=== PATIENT | female | born 1965 ===

== ENCOUNTER 2016-06-05 09:37 | Emergency (ER) | payer MEDICAID ==
[2016-06-05 09:38] VITALS: BMI 23.9
--- NOTE | 2016-06-05 10:41 | ED PDOC ---
HPI: General Adult Time Seen by Provider: 06/05/16 10:38 Chief Complaint (Nursing): Abdominal Pain Chief Complaint (Provider): abdominal pain History Per: Patient History/Exam Limitations: no limitations Additional Complaint(s): 51yo female w/ Hx Lupus comes to the ED complaining of abdominal pain described as burning that radiates up to the chest. Reports yellow vomit for 4 days. She is not able to tolerate any foods. States she is taking Prilosec, amoxicillin and clarithromycin which she stopped yesterday due to the pain. Last bowel movement was yesterday. Patient attempted zofran and carafate with mild temporary relief. PMD: [facility] Past Medical History Reviewed: Historical Data, Nursing Documentation, Vital Signs - Medical History PMH: Anemia, Anxiety, Arthritis, Asthma, Back Problems (herniated disk), Bronchitis, COPD, Depression, Fibromyalgia, Gastritis, GERD, Hiatal Hernia (per old chart but pt denies), HTN, Hypercholesterolemia, Hyperlipidemia, Hyperthyroidism, Hypothyroidism, Osteoporosis, Pneumonia, Rheumatoid Arthritis, Chronic Pain Denies: Alzheimer's Disease, Atrial Fibrillation, Cardia Arrhythmia, CHF, Dementia, HIV, Kidney Stones, Migraine, Mitral Valve Prolapse, Peripheral Edema , Chronic Kidney Disease, Seizures, TIA - Surgical History Surgical History: Appendectomy, Denies: Endoscopy, Pacemaker - Family History Family History: States: Unknown Family Hx, Hypertension - Immunization History Hx Tetanus Toxoid Vaccination: No Hx Influenza Vaccination: No Hx Pneumococcal Vaccination: No - Home Medications Home Medications: Ambulatory Orders Medication Instructions Recorded Omeprazole [Prilosec] 40 mg PO DAILY 08/02/15 Gabapentin [Neurontin] 1 cap PO TID #90 cap 04/27/16 Hydroxychloroquine Sulfate 200 mg PO BID #60 tablet 04/27/16 [Plaquenil] Levothyroxine [Synthroid] 50 mcg PO DAILY #30 tab 04/27/16 Sucralfate [Carafate Oral Susp] 1 gm PO ACBHS 10 Days 04/27/16 predniSONE [predniSONE Tab] 10 mg PO DAILY #30 tab 04/27/16 ALPRAZolam [Xanax] 1 mg PO TID PRN #9 tab 05/23/16 Amoxicillin [Amoxil 500 mg Cap] 1,000 mg PO BID #42 cap 05/23/16 Clarithromycin [Biaxin Filmtab] 500 mg PO BID #42 tab 05/23/16 Omeprazole 40 mg PO DAILY #30 capsule. 05/23/16 DiphenhydrAMINE [Benadryl] 1 tab PO HS PRN #3 cap 06/05/16 Famotidine [Pepcid] 1 tab PO BID PRN #10 tab 06/05/16 Ondansetron ODT [Zofran ODT] 4 mg PO Q8 PRN #10 odt 06/05/16 Sucralfate [Carafate] 1 gm PO QID #280 ml 06/05/16 - Allergies Allergies/Adverse Reactions: Allergies Allergy/AdvReac Type Severity Reaction Status Date / Time tramadol Allergy RASH Verified 03/07/16 11:16 hydromorphone HCl AdvReac ITCHING Verified 05/22/16 19:39 [From Dilaudid] Review of Systems ROS Statement: Except As Marked, All Systems Reviewed And Found Negative Gastrointestinal: Positive for: Vomiting, Abdominal Pain Physical Exam - Reviewed Nursing Documentation Reviewed: Yes Vital Signs Reviewed: Yes - Physical Exam Gastrointestinal/Abdominal: Positive for: Bowel Sounds (active), Tenderness ( mild epigastric) - Laboratory Results Result Diagrams: 06/05/16 11:31 06/05/16 12:51 - Progress ED Course And Treament: Pepcid 20 mg iv x 1 dose Zofran 4 mg iv x 1 dose Dilaudid 1 mg iv x 1 dose Phenergan 25 mg iv x 1 dose NS 1 liter obstructive series: wnl Persistent vomiting. Zofran 4mgi vx1 dos; morphine 4 mg i vx [address] abd/pelvis IMPRESSION: No acute findings related to/accounting for the clinical presentation. Additional benign and/or incidental findings described above. Limitations of the current examination: Pelvic loops of small bowel, colon are obscured by streak artifact from bilateral CHONG ease. Nondiagnostic assessment of the urinary bladder as well. On re-evaluateion 17:45pm Patient states she feels improved and would like to be discharged home. Medical Decision Making Medical Decision Makin: old charts reviewed. Patient was recently discharged with Dx h. pylori on Prisolec, Amoxicillin and Clarithromycin EKG, CXR, XR Obstructive Series, Labs, Pepcid, Zofran, IV fluids ordered. Disposition - Clinical Impression Clinical Impression: Gastritis - Patient ED Disposition Is Patient to be Admitted: No - Disposition Disposition: Routine/Home Disposition Time: 17:49 Condition: FAIR Prescriptions: DiphenhydrAMINE [Benadryl] 1 tab PO HS PRN #3 cap PRN Reason: Sleep Sucralfate [Carafate] 1 gm PO QID #280 ml Famotidine [Pepcid] 1 tab PO BID PRN #10 tab PRN Reason: Pain, Moderate (4-7) Ondansetron ODT [Zofran ODT] 4 mg PO Q8 PRN #10 odt PRN Reason: Nausea/Vomiting Instructions: Gastritis (ED) Additional Comments - Additional Comments Additional Comments: Documented by Bari Jj acting as a scribe for Aliyah Kolb PA-C. All medical record entries made by the Scribe were at my direction and personally dictated by me. I have reviewed the chart and agree that the record accurately reflects my personal performance of the history, physical exam, medical decision making, and the department course for this patient. I have also personally directed, reviewed, and agree with the discharge instructions and disposition.
[2016-06-05] MEDS ORDERED: Sodium Chloride 0.9% 1,000 ML IV STA (10:53)
[2016-06-05 11:33] LABS: RBC URINE 1 /hpf (0-3); URINE BACTERIA FEW (<OCC); URINE BILIRUBIN NEGATIVE (NEGATIVE); URINE BLOOD NEGATIVE (NEGATIVE); URINE COLOR YELLOW (YELLOW); URINE GLUCOSE (UA) NEG (Normal); URINE KETONE TRACE mg/dL (NEGATIVE); URINE LEUKOCYTE ESTERASE NEG Leu/uL (Negative); URINE PROTEIN 100 mg/dL (NEGATIVE); URINE UROBILINOGEN 0.2-1.0 mg/dL (0.2-1.0); WBC URINE 1 /hpf (0-5)
[2016-06-05 11:35] LABS: BASO # 0.1 K/uL (0.0-0.2); BASO % 0.7 % (0.0-2.0); EOS # 0.2 K/uL (0.0-0.7); EOS % 2.3 % (0.0-4.0); HEMATOCRIT 41.6 % (34.0-47.0); LYMPH # 1.9 K/uL (1.0-4.3); LYMPH % 19.6 % (20.0-40.0); MEAN CORPUSCULAR HEMOGLOBIN 27.5 pg (27.0-31.0); MEAN CORPUSCULAR HGB CONC 33.3 g/dL (33.0-37.0); MEAN PLATELET VOLUME 7.9 fl (7.2-11.7); MONO # 0.6 K/uL (0.0-0.8); MONO % 6.3 % (0.0-10.0); NEUT # 6.9 K/uL (1.8-7.0); NEUT % 71.1 % (50.0-75.0); NRBC % 0.1 % (0.0-0.0); RED CELL DISTRIBUTION WIDTH 16.1 % (11.5-14.5); WHITE BLOOD COUNT 9.6 K/uL (4.8-10.8)
[2016-06-05 11:36] LABS: MEAN CELL VOLUME 82.5 fl (81.0-99.0)
[2016-06-05 13:10] LABS: ALB/GLOB RATIO 1.1 (1.0-2.1); ALKALINE PHOSPHATASE 128 U/L (38-126); ALT/SGPT 32 U/L (9-52); AST/SGOT 24 U/L (14-36); BILIRUBIN,TOTAL 0.7 mg/dl (0.2-1.3); BLOOD UREA NITROGEN 9 mg/dl (7-17); CALCIUM 8.8 mg/dL (8.4-10.2); CARBON DIOXIDE 23 mmol/L (22-30); CHLORIDE 105 mmol/L (98-107); GFR AFRICAN-AMERICAN > 60; GLUCOSE,RANDOM 89 mg/dL (65-105); LIPASE 60 U/L (23-300); POTASSIUM 4.2 MMOL/L (3.6-5.0); SODIUM 142 mmol/l (132-148); TOTAL PROTEIN 7.2 G/DL (6.3-8.2)
[2016-06-05] MEDS ORDERED: Promethazine 25 MG in Sodium Chloride 0.9% 50 ML IVPB ONE (14:03)
[2016-06-05] MEDS ORDERED: Iohexol 240 (50 ml) PO ONE (14:04)
[2016-06-05] MEDS ORDERED: Iohexol 240 (50 ml) ONE (14:14)
--- NOTE | 2016-06-05 15:18 | RAD ---
PROCEDURE: Radiographs of the chest and abdomen (obstructive series) HISTORY: VOMITING COMPARISON: No prior. TECHNIQUE: AP radiograph of the chest, with upright and supine radiographs of the abdomen. FINDINGS: CHEST: Lungs: Clear. Cardiovascular: Normal size heart. No pulmonary vascular congestion. Pleura: No pleural fluid. No pneumothorax. Other findings: Sclerotic focus posterior right 6th rib. Etiology, significance unknown. Findings confirmed on CT thorax 10 [address]. ABDOMEN AND PELVIS: Bowel: Unremarkable bowel gas pattern. No evidence of mechanical obstruction. Free air: None. Bones: Unremarkable. Other findings: None. IMPRESSION: No acute findings related to/accounting for the clinical presentation. Sclerotic focus posterior aspect right 6th rib.
[2016-06-05] MEDS ORDERED: Sodium Chloride 0.9% 50 ML IV ONE (16:30)
[2016-06-05] MEDS ORDERED: Iohexol 300 100 ML IJ ONE (16:30)
--- NOTE | 2016-06-05 17:35 | CT ---
PROCEDURE: CT Abdomen and Pelvis with contrast HISTORY: abdominal pain/vomiting r/o sbo COMPARISON: None. TECHNIQUE: Contrast dose: 80 cc Omnipaque 300. Radiation dose: Total exam DLP = 558.58 mGy-cm. FINDINGS: LOWER THORAX: Incompletely visualized markedly dilated/ patulous esophagus. The findings were identified on a prior CT scan of the thorax and are approximately stable. CT thorax performed 05/22/2016. LIVER: Hepatic steatosis. No focal masses. No intrahepatic bile duct dilatation or perihepatic ascites. GALLBLADDER AND BILE DUCTS: Unremarkable. PANCREAS: Unremarkable. No gross lesion or ductal dilatation. SPLEEN: Unremarkable. ADRENALS: Unremarkable. No mass. KIDNEYS AND URETERS: Unremarkable. No hydronephrosis. No solid mass. VASCULATURE: Unremarkable. No aortic aneurysm. BOWEL: Unremarkable. No obstruction. No gross mural thickening. Diverticulosis without an acute inflammatory component or other associated pathologic process. Constipation without fecal impaction or obstruction. APPENDIX: No abnormalities to suggest acute appendicitis. No right lower quadrant inflammatory processes identified. PERITONEUM: Unremarkable. No free fluid. No free air. LYMPH NODES: Unremarkable. No enlarged lymph nodes. BLADDER: Nondiagnostic assessment of the urinary bladder related to streak artifact from bilateral CHONG. REPRODUCTIVE: Nondiagnostic assessment based on streak artifact from bilateral CHONG. BONES: No acute fracture. OTHER FINDINGS: None. IMPRESSION: No acute findings related to/accounting for the clinical presentation. Additional benign and/or incidental findings described above. Limitations of the current examination: Pelvic loops of small bowel, colon are obscured by streak artifact from bilateral CHONG ease. Nondiagnostic assessment of the urinary bladder as well.
--- NOTE | 2016-06-06 11:47 | CARD ---
APPROVED REPORT EKG Measurement Heart [id number] <Conclusion> Normal sinus rhythm Possible Left atrial enlargement Borderline ECG
== END 2016-06-05 18:44 | disposition home or self-care (01) ==
LOC: H.ER 09:37
DX: K29.70 Gastritis, unspecified, without bleeding (principal)

== ENCOUNTER 2016-08-15 11:22 | Emergency (ER) | payer MEDICAID ==
[2016-08-15 11:22] VITALS: BMI 23.9
[2016-08-15] MEDS ORDERED: HYDROmorphone 0.5 mg/0.5 ml ISec IVP STA (11:54)
[2016-08-15] MEDS ORDERED: Sodium Chloride 0.9% 500 ML IV STA (11:54)
[2016-08-15] MEDS ORDERED: DiphenhydrAMINE 50 mg/ml Inj IV STA (11:57)
--- NOTE | 2016-08-15 12:01 | ED PDOC ---
HPI: General Adult Time Seen by Provider: 08/15/16 11:37 Chief Complaint (Nursing): Weakness/Neurological Deficit Chief Complaint (Provider): Body pains History Per: Patient History/Exam Limitations: no limitations Onset/Duration Of Symptoms: Persistent (chronic pain) Have you had recent travel within the past 21 days to any of the following countries: [place], [place], [place] or [place]?: No Current Symptoms Are (Timing): Still Present Severity: Moderate Additional History Per: Patient Additional Complaint(s): The pt. is a 51yo female, PMHx of lupus, chronic body pains, presents to the ED for evaluation of body pains. Pt reports she has visited pain management but was informed she would not be able to get pain medications. Pt reports she has been unable to eat properly for the past couple months and has lost weight. She denies any new trauma, injury or complaints. No chest pain, dyspnea, abd pain. No weakness. No numbness, tingles. No headaches, dizziness. Has trouble with swallowing, but then swallows it. Feels stuff stays in her stomach. Ongoing for months. Seen by multiple gastroenterologists. PCP: Dr. Shree Miller Past Medical History Reviewed: Historical Data, Nursing Documentation, Vital Signs Vital Signs: Last Vital Signs Temp 98.3 F 08/15/16 11:29 Pulse 114 H 08/15/16 11:29 Resp 20 08/15/16 11:29 BP 116/80 08/15/16 11:29 Pulse Ox - Medical History PMH: Anemia, Anxiety, Arthritis, Asthma, Back Problems (herniated disk), Bronchitis, COPD, Depression, Fibromyalgia, Gastritis, GERD, Hiatal Hernia (per old chart but pt denies), HTN, Hypercholesterolemia, Hyperlipidemia, Hyperthyroidism, Hypothyroidism, Osteoporosis, Pneumonia, Rheumatoid Arthritis, Chronic Pain Denies: Alzheimer's Disease, Atrial Fibrillation, Cardia Arrhythmia, CHF, Dementia, HIV, Kidney Stones, Migraine, Mitral Valve Prolapse, Peripheral Edema , Chronic Kidney Disease, Seizures, TIA - Surgical History Surgical History: Appendectomy, Denies: Endoscopy, Pacemaker - Family History Family History: States: Unknown Family Hx, Hypertension - Immunization History Hx Tetanus Toxoid Vaccination: No Hx Influenza Vaccination: No Hx Pneumococcal Vaccination: No - Home Medications Home Medications: Ambulatory Orders Medication Instructions Recorded Omeprazole [Prilosec] 40 mg PO DAILY 08/02/15 Gabapentin [Neurontin] 1 cap PO TID #90 cap 04/27/16 Hydroxychloroquine Sulfate 200 mg PO BID #60 tablet 04/27/16 [Plaquenil] Levothyroxine [Synthroid] 50 mcg PO DAILY #30 tab 04/27/16 Sucralfate [Carafate Oral Susp] 1 gm PO ACBHS 10 Days 04/27/16 predniSONE [predniSONE Tab] 10 mg PO DAILY #30 tab 04/27/16 ALPRAZolam [Xanax] 1 mg PO TID PRN #9 tab 05/23/16 Amoxicillin [Amoxil 500 mg Cap] 1,000 mg PO BID #42 cap 05/23/16 Clarithromycin [Biaxin Filmtab] 500 mg PO BID #42 tab 05/23/16 Omeprazole 40 mg PO DAILY #30 capsule. 05/23/16 DiphenhydrAMINE [Benadryl] 1 tab PO HS PRN #3 cap 06/05/16 Famotidine [Pepcid] 1 tab PO BID PRN #10 tab 06/05/16 Ondansetron ODT [Zofran ODT] 4 mg PO Q8 PRN #10 odt 06/05/16 Sucralfate [Carafate] 1 gm PO QID #280 ml 06/05/16 Ibuprofen [Motrin] 600 mg PO TID 7 Days 08/15/16 Metoclopramide [Reglan] 5 mg PO DAILY PRN 5 Days 08/15/16 - Allergies Allergies/Adverse Reactions: Allergies Allergy/AdvReac Type Severity Reaction Status Date / Time tramadol Allergy RASH Verified 03/07/16 11:16 hydromorphone HCl AdvReac ITCHING Verified 05/22/16 19:39 [From Dilaudid] Review of Systems ROS Statement: Except As Marked, All Systems Reviewed And Found Negative Constitutional: Positive for: Weight loss, Other (Body pains) Gastrointestinal: Positive for: Other (decreased appetite) Physical Exam - Reviewed Nursing Documentation Reviewed: Yes Vital Signs Reviewed: Yes - Physical Exam Appears: Positive for: Well, Non-toxic, No Acute Distress (pt crying in ED) Head Exam: Positive for: ATRAUMATIC, NORMAL INSPECTION, NORMOCEPHALIC Skin: Positive for: Normal Color Eye Exam: Positive for: Normal appearance, EOMI, PERRL ENT: Negative for: Nasal Congestion Neck: Positive for: Normal, Supple Cardiovascular/Chest: Positive for: Regular Rate, Rhythm Respiratory: Positive for: Normal Breath Sounds. Negative for: Respiratory Distress Gastrointestinal/Abdominal: Positive for: Soft. Negative for: Tenderness Back: Positive for: Normal Inspection. Negative for: L CVA Tenderness, R CVA Tenderness Extremity: Positive for: Normal ROM. Negative for: Tenderness, Pedal Edema Neurologic/Psych: Positive for: Alert, Oriented. Negative for: Motor/Sensory Deficits - Laboratory Results Result Diagrams: 08/15/16 12:40 08/15/16 12:40 Medical Decision Making Medical Decision Making: Time: 1150 Impression: Chronic body pains Plan: * CMP * CBC * Benadryl 50 mg PO * Dilaudid 1mg IVP * IV fluids * Pain management consult * Reassess Scribe Attestation: Documented by Adalgisa Barrett acting as a scribe for Jefferson Disla MD. Provider Attestation: All medical record entries made by the Scribe were at my direction and personally dictated by me. I have reviewed the chart and agree that the record accurately reflects my personal performance of the history, physical exam, medical decision making, and the department course for this patient. I have also personally directed, reviewed, and agree with the discharge instructions and disposition. Disposition - Clinical Impression Clinical Impression: Chronic pain, Dysphagia - Disposition Referrals: [facility] [Outside] - 08/16/16 Condition: STABLE Additional Instructions: Return if not better in 3 days. Prescriptions: Metoclopramide [Reglan] 5 mg PO DAILY PRN 5 Days PRN Reason: Nausea/Vomiting Instructions: Chronic Dysphagia (GEN), Chronic Pain (ED)
[2016-08-15] MEDS ORDERED: DiphenhydrAMINE 50 mg/ml Inj ONE (12:03)
[2016-08-15 12:57] LABS: BASO # 0.1 K/uL (0.0-0.2); BASO % 0.6 % (0.0-2.0); EOS # 0.2 K/uL (0.0-0.7); EOS % 1.9 % (0.0-4.0); HEMATOCRIT 39.9 % (34.0-47.0); LYMPH # 1.5 K/uL (1.0-4.3); LYMPH % 15.2 % (20.0-40.0); MEAN CELL VOLUME 82.3 fl (81.0-99.0); MEAN CORPUSCULAR HEMOGLOBIN 26.7 pg (27.0-31.0); MEAN CORPUSCULAR HGB CONC 32.5 g/dL (33.0-37.0); MEAN PLATELET VOLUME 8.6 fl (7.2-11.7); MONO # 0.7 K/uL (0.0-0.8); NEUT # 7.4 K/uL (1.8-7.0); NEUT % 75.3 % (50.0-75.0); NRBC % 0.1 % (0.0-0.0); RED CELL DISTRIBUTION WIDTH 16.5 % (11.5-14.5); WHITE BLOOD COUNT 9.9 K/uL (4.8-10.8)
[2016-08-15 13:10] LABS: ALB/GLOB RATIO 1.4 (1.0-2.1); ALKALINE PHOSPHATASE 130 U/L (38-126); ALT/SGPT 32 U/L (9-52); AST/SGOT 28 U/L (14-36); BILIRUBIN,TOTAL 0.5 mg/dl (0.2-1.3); BLOOD UREA NITROGEN 9 mg/dl (7-17); CALCIUM 9.6 mg/dL (8.4-10.2); CARBON DIOXIDE 22 mmol/L (22-30); CHLORIDE 104 mmol/L (98-107); GFR AFRICAN-AMERICAN > 60; GLUCOSE,RANDOM 88 mg/dL (65-105); POTASSIUM 3.8 MMOL/L (3.6-5.0); SODIUM 140 mmol/l (132-148); TOTAL PROTEIN 7.4 G/DL (6.3-8.2)
[2016-08-15 13:49] VITALS: BP 114/76; PULSE 88; RESP 16; TEMP 98.1; O2SAT 98
== END 2016-08-15 13:52 | disposition home or self-care (01) ==
LOC: H.ER 11:22
DX: R13.10 Dysphagia, unspecified (principal); G89.4 Chronic pain syndrome; M32.9 Systemic lupus erythematosus, unspecified

== ENCOUNTER 2016-09-03 09:14 | Day surgery (SDC) | payer MEDICAID ==
[2016-09-03 10:09] VITALS: BMI 19.2
[2016-09-03 10:13] VITALS: RESP 18
[2016-09-03] MEDS ORDERED: Bupivacaine HCl 0.25% PF (10 ml) Inj IJ ONE (12:25)
[2016-09-03] MEDS ORDERED: methylPREDNISolone Depo 80 mg/ml Inj IM ONE (12:25)
[2016-09-03] MEDS ORDERED: Lactated Ringer's 1,000 ML IV SCH (12:40)
[2016-09-03] MEDS ORDERED: HYDROmorphone 0.5 mg/0.5 ml ISec IVP PRN (12:40)
[2016-09-03] MEDS ORDERED: Lactated Ringer's 1,000 ML IV ONE (12:45)
[2016-09-03] MEDS ORDERED: Pantoprazole 40 MG in Sodium Chloride 0.9% 100 ML IVPB ONE (12:50)
[2016-09-03 13:16] VITALS: TEMP 98.1
--- NOTE | 2016-09-03 13:17 | OP ---
PROCEDURE DATE: 09/03/2016 PREOPERATIVE DIAGNOSIS: Chronic right knee pain status post knee replacement. POSTOPERATIVE DIAGNOSIS: Chronic right knee pain status post knee replacement. PROCEDURE: Right genicular nerve block under fluoroscopic guidance. COMPLICATIONS: None. EXPECTED BLOOD LOSS: None. TECHNIQUE: After informed consent was obtained, the patient was brought to the OR and placed on the table in supine position. All pressure points were padded , sedation was administered by anesthesia. The right knee was prepped and draped with iodine x 3 and draped in a normal sterile fashion. 1% lidocaine using a 25 gauge needle was used to create a skin wheal. The right knee was identified using AP view, focusing on the junction between and femoral condyles and the shaft and the medial tibial condyle and the tibial shaft. After skin wheels were created, a 22 gauge 3-1/2 inch needle was placed to bony contact at these three intersections between the medial and lateral femoral condyles and femoral shaft and medial condyle and tibial shaft and the medial side. There was no paresthesia during placement of the needles. After negative aspiration for heme or CSF, 2 mL of 0.25% preservative-free Marcaine and Depo-Medrol was easily instilled at these areas without paresthesia. The patient was brought to stage II recovery room with stable vital signs and bilateral lower extremity motor and sensory intact. Carlos Denney MD cc: [id number] TT: 09/03/2016 13:16:18 shi DIAZ
[2016-09-03 14:46] VITALS: BP 108/66; PULSE 80; O2SAT 95
--- NOTE | 2016-09-05 16:04 | RAD ---
PROCEDURE: Intraoperative Fluoroscopy. HISTORY: EPIDURAL FINDINGS: Fluoroscopic assistance was provided for pain management. Please fluoroscopic time (continuous mode) utilized during the procedure: 31.5 seconds. Submitted images from the current procedure: 5.0
== END 2016-09-03 15:00 | disposition home or self-care (01) ==
LOC: H.OPSURG 09:14
PROVIDERS: ATTEND Anesthesiology Pain Medicine
DX: M25.661 Stiffness of right knee, not elsewhere classified (principal); Z96.659 Presence of unspecified artificial knee joint; G89.29 Other chronic pain

== ENCOUNTER 2017-02-25 11:42 | Emergency (ER) | payer MEDICAID ==
[2017-02-25 11:47] VITALS: RESP 18
[2017-02-25 11:48] VITALS: BMI 18.9
[2017-02-25] MEDS ORDERED: Sodium Chloride 0.9% 1,000 ML IV ONE (13:03)
--- NOTE | 2017-02-25 13:04 | ED PDOC ---
HPI: Abdomen Time Seen by Provider: 02/25/17 12:15 Chief Complaint (Nursing): Abdominal Pain History Per: Patient, Family Onset/Duration Of Symptoms: Gradual (chronic sx worse today) Severity: Moderate Location Of Pain/Discomfort: Epigastric Quality Of Discomfort: Dull, Aching Associated Symptoms: Nausea. denies: Fever, Chills, Vomiting, Diarrhea, Back Pain, Chest Pain, Constipation Exacerbating Factors: None Alleviating Factors: None Additional History Per: Patient Additional Complaint(s): Pt c/o pain in chest and abdomen with vomiting and diarrhea x 4 days, also c/o weakness and dizziness. esophagram done 02/20/2017 showed stricutre with delayed contrast in abdomen Past Medical History Reviewed: Historical Data, Nursing Documentation, Vital Signs Vital Signs: Last Vital Signs Temp 98 F 02/25/17 11:47 Pulse 89 02/25/17 14:22 Resp 18 02/25/17 14:22 BP 111/58 L 02/25/17 14:22 Pulse Ox 96 02/25/17 14:27 - Medical History PMH: Anemia, Anxiety, Arthritis, Asthma, Back Problems (herniated disk), Bronchitis, COPD, Depression, Fibromyalgia, Gastritis, GERD, Hiatal Hernia, Hypercholesterolemia, Hyperlipidemia, Hyperthyroidism, Hypothyroidism, Migraine , Osteoporosis, Pneumonia, Rheumatoid Arthritis, Chronic Pain Denies: Alzheimer's Disease, Atrial Fibrillation, Cardia Arrhythmia, CHF, Dementia, HIV, HTN (denies), Kidney Stones, Mitral Valve Prolapse, Peripheral Edema, Chronic Kidney Disease, Seizures, TIA - Surgical History Surgical History: Appendectomy, Denies: Endoscopy, Pacemaker - Family History Family History: States: Unknown Family Hx, Hypertension - Living Arrangements Living Arrangements: With Family - Social History Current smoker - smoking cessation education provided: No Alcohol: None Drugs: Denies - Immunization History Hx Tetanus Toxoid Vaccination: No Hx Influenza Vaccination: No Hx Pneumococcal Vaccination: No - Home Medications Home Medications: Ambulatory Orders Medication Instructions Recorded Omeprazole [Prilosec] 40 mg PO DAILY 08/02/15 Hydroxychloroquine Sulfate 200 mg PO BID #60 tablet 04/27/16 [Plaquenil] Levothyroxine [Synthroid] 50 mcg PO DAILY #30 tab 04/27/16 Famotidine [Pepcid] 1 tab PO BID PRN #10 tab 06/05/16 Sucralfate [Carafate] 1 gm PO QID #280 ml 06/05/16 Gabapentin [Neurontin] 300 mg PO TID 09/03/16 Mecotrac 1 tab PO QWK 09/03/16 Dexlansoprazole [Dexilant] 1 cap PO DAILY #30 cap.[id number] 01/16/17 Metoclopramide [Reglan] 10 mg PO Q8 PRN #30 tab 01/16/17 oxyCODONE/Acetaminophen [Percocet 1 ea PO QID PRN #15 tab 02/25/17 5/325 mg Tab] - Allergies Allergies/Adverse Reactions: Allergies Allergy/AdvReac Type Severity Reaction Status Date / Time ondansetron Allergy RASH Verified 02/25/17 11:45 [From Zofran (as hydrochloride)] tramadol Allergy VOMITING Verified 02/25/17 11:45 Review of Systems ROS Statement: Except As Marked, All Systems Reviewed And Found Negative Constitutional: Negative for: Fever, Chills Cardiovascular: Negative for: Chest Pain, Palpitations Respiratory: Negative for: Cough, Shortness of Breath Gastrointestinal: Positive for: Nausea, Abdominal Pain. Negative for: Vomiting , Diarrhea Skin: Negative for: Rash Neurological: Negative for: Weakness, Numbness, Dizziness Physical Exam - Reviewed Nursing Documentation Reviewed: Yes Vital Signs Reviewed: Yes - Physical Exam Appears: Positive for: Uncomfortable Head Exam: Positive for: ATRAUMATIC, NORMAL INSPECTION, NORMOCEPHALIC Skin: Positive for: Warm, Dry (signs of lupus related skin problems) Eye Exam: Positive for: Normal appearance, EOMI, PERRL. Negative for: Periorbital swelling, Periorbital tenderness, Conjunctival injection, Scleral icterus ENT: Positive for: Pharynx Is (clear,mmm) Neck: Positive for: Normal, Painless ROM, Supple Cardiovascular/Chest: Positive for: Regular Rate, Rhythm, Chest Non Tender. Negative for: Edema, Gallop, Murmur, Bradycardia, Tachycardia Respiratory: Positive for: Normal Breath Sounds. Negative for: Decreased Breath Sounds, Accessory Muscle Use, Crackles, Rales, Rhonchi, Stridor, Wheezing , Respiratory Distress Gastrointestinal/Abdominal: Positive for: Normal Exam, Bowel Sounds, Soft. Negative for: Tenderness Back: Positive for: Normal Inspection. Negative for: L CVA Tenderness, R CVA Tenderness, Vertebral Tenderness Extremity: Positive for: Normal ROM. 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 Negative for: Motor/Sensory Deficits - Laboratory Results Result Diagrams: 02/25/17 14:20 02/25/17 14:20 - ECG ECG: Positive for: Interpreted By Me ECG Rhythm: Positive for: Normal QRS, Normal ST Segment, Sinus Rhythm (rate of 92). Negative for: ST/T Changes Interpretation Of Abn EKG: no evidence of ischemia O2 Sat by Pulse Oximetry: 96 Pulse Ox Interpretation: Normal - Radiology X-Ray: Interpreted by Me X-Ray Interpretation: No Acute Disease - Progress ED Course And Treament: discussed with nikolas will see pt in office pt agree's with plan. advise percocet for pain advise not to drive on medication, pt leaves ambulatory and in good spirits. Re-evaluation Time: 16:45 Condition: Improved Disposition - Clinical Impression Clinical Impression: Abdominal pain - Patient ED Disposition Is Patient to be Admitted: No Discussed With DrHitesh: Jorge A Leon Doctor Will See Patient In The: Office Counseled Patient/Family Regarding: Studies Performed, Diagnosis, Need For Followup - Disposition Referrals: Jorge A Leon MD, PhD [Staff Provider] - (2 to 3 days) Disposition: Routine/Home Disposition Time: 16:45 Condition: GOOD Prescriptions: oxyCODONE/Acetaminophen [Percocet 5/325 mg Tab] 1 ea PO QID PRN #15 tab PRN Reason: Pain, Moderate (4-7) Instructions: Dysphagia (ED) Forms: [facility] ([place])
--- NOTE | 2017-02-25 14:01 | RAD ---
PROCEDURE: CHEST RADIOGRAPH, 1 VIEW HISTORY: Abdominal pain. COMPARISON: Comparison chest 01/16/2017. In the theNone available. FINDINGS: LUNGS: Suspect minor bibasilar atelectasis. Lung rosenberg are otherwise clear. PLEURA: No pneumothorax or pleural fluid seen. CARDIOVASCULAR: Normal. OSSEOUS STRUCTURES: Re- demonstrated is a elliptical shaped sclerotic lesion within the right posterior 6 rib with some thinner linear sclerosis along the inferior margin just lateral to the main sclerotic focus within the same rib unchanged from prior study. Minor degenerative osteoarthritis both AC joints. . VISUALIZED UPPER ABDOMEN: Normal. OTHER FINDINGS: None. IMPRESSION: Suspect minor bibasilar atelectasis. Stable sclerotic changes right posterior 6 rib.
[2017-02-25 14:29] LABS: BASO # 0.1 K/uL (0.0-0.2); BASO % 0.8 % (0.0-2.0); EOS # 0.3 K/uL (0.0-0.7); EOS % 3.7 % (0.0-4.0); HEMATOCRIT 36.5 % (34.0-47.0); LYMPH # 2.2 K/uL (1.0-4.3); LYMPH % 28.8 % (20.0-40.0); MEAN CELL VOLUME 83.2 fl (81.0-99.0); MEAN CORPUSCULAR HEMOGLOBIN 27.2 pg (27.0-31.0); MEAN CORPUSCULAR HGB CONC 32.7 g/dL (33.0-37.0); MEAN PLATELET VOLUME 8.1 fl (7.2-11.7); MONO # 0.6 K/uL (0.0-0.8); MONO % 7.6 % (0.0-10.0); NEUT # 4.5 K/uL (1.8-7.0); NEUT % 59.1 % (50.0-75.0); RED CELL DISTRIBUTION WIDTH 15.8 % (11.5-14.5); WHITE BLOOD COUNT 7.5 K/uL (4.8-10.8)
[2017-02-25 14:43] LABS: ALB/GLOB RATIO 1.2 (1.0-2.1); ALKALINE PHOSPHATASE 79 U/L (38-126); ALT/SGPT 35 U/L (9-52); AMYLASE 103 U/L (30-110); AST/SGOT 21 U/L (14-36); BILIRUBIN,TOTAL 0.6 mg/dl (0.2-1.3); BLOOD UREA NITROGEN 6 mg/dl (7-17); CALCIUM 8.9 mg/dL (8.4-10.2); CARBON DIOXIDE 23 mmol/L (22-30); CHLORIDE 108 mmol/L (98-107); GFR AFRICAN-AMERICAN > 60; GLUCOSE,RANDOM 90 mg/dL (65-105); LIPASE 42 U/L (23-300); POTASSIUM 3.7 MMOL/L (3.6-5.0); SODIUM 141 mmol/l (132-148)
--- NOTE | 2017-02-25 17:19 | CT ---
PROCEDURE: CT scan abdomen pelvis dated 02/25/2017. HISTORY: Abdominal pain. Recent esophagram COMPARISON: Comparison made with CT scan abdomen pelvis 06/05/2016. TECHNIQUE: Contiguous axial images of the abdomen and pelvis performed without oral or intravenous contrast. Coronal and Sagittal reformats generated. Note made of oral contrast material within the large bowel from recent esophagram dated 02/20/2017. This CT exam was performed using one or more of the following dose reduction techniques: Automated exposure control, adjustment of the mA and/or kV according to patient size, and/or use of iterative reconstruction technique. Total exam DLP = 384.08 mGy-cm. FINDINGS: LOWER THORAX: There mild passive atelectatic changes both posterior sulci. No effusion or basilar pneumothorax. . Heart size is within range of normal. Small pericardial effusion. . Moderate size hiatal hernia with air-fluid level which us may be secondary to reflux. LIVER: Liver exhibits relatively normal size measuring approximately 14.2 cm in CC dimension. No obvious hepatic mass collection or calcification. GALLBLADDER AND BILE DUCTS: The gallbladder is partially distended. Several small discrete low-attenuation foci present within the gallbladder lumen likely representing cholesterol stones. No pericholecystic fluid collections are identified. PANCREAS: The pancreas is atrophic and fatty replaced. No obvious pancreatic mass collection or calcification. SPLEEN: Spleen exhibits normal size and attenuation pattern without mass collection or calcification. ADRENALS: No adrenal lesions. . KIDNEYS AND URETERS: Kidneys exhibit relatively symmetric size. No evidence of nephrolithiasis or hydronephrosis. . BLADDER: Urinary bladder is obscured by significant crossing streak and beam hardening artifact arising from bilateral total hip replacements. REPRODUCTIVE: Unremarkable. The uterus is also on partially obscured due to streak and beam hardening artifact also arising from bilateral total hip replacements. APPENDIX: Appendix is not seen with certainty on this exam. Note also that streak and beam hardening artifact arising from the dense oral contrast material within the cecum of partially obscure the cecum and adjacent surrounding anatomy. BOWEL: Evaluation of the bowel is somewhat limited due to the lack of oral EZ CT contrast material however on there is opacification of the right colon and lesser degree and to a much lesser degree the remaining distal transverse descending and sigmoid colon are related to residual oral contrast material from and esophagram was performed 02/20/2017. Note that the streak and beam hardening artifact arise from a collection of dense contrast material within the cecum obscuring surrounding detail. There does appear to be scattered colonic diverticula along descending and sigmoid colon. No definitive radiographic evidence of acute diverticulitis. The stomach is incompletely distended which presumably accounts for thick-walled appearance. Possibility of a gastritis not excluded. Visualized loops of small bowel exhibit normal contour and caliber. No evidence of acute mechanical small bowel obstruction. PERITONEUM: Unremarkable. Evaluation for free fluid in the pelvis limited due to significant streak and beam hardening artifact arising from bilateral total hip replacements LYMPH NODES: Unremarkable. No enlarged lymph nodes. VASCULATURE: Unremarkable. No aortic aneurysm. BONES: . Re- demonstrated are bilateral total hip replacements. The remaining visualized osseous structures otherwise grossly unremarkable. OTHER FINDINGS: None. IMPRESSION: Limited study due to residual oral contrast material from and upper GI series which it is present within the colon particularly on the right side with the significant streak and beam hardening artifact arising from this contrast material at the level of the cecum. . Diverticulosis with no definitive radiographic evidence of acute diverticulitis. Cholelithiasis. Note that the urinary bladder and uterus as well as adnexal structures are obscured by significant streak and beam hardening artifact arising from bilateral total hip replacements. There is a small to moderate-size hiatal hernia with air-fluid level on possibly due to reflux. Small pericardial effusion. Bilateral total hip replacements again noted.
[2017-02-25 17:59] VITALS: BP 109/64; PULSE 85; TEMP 97.4; O2SAT 98
--- NOTE | 2017-02-27 11:54 | CARD ---
APPROVED REPORT EKG Measurement Heart [id number] <Conclusion> Normal sinus rhythm Prolonged QT Abnormal ECG
== END 2017-02-25 17:57 | disposition home or self-care (01) ==
LOC: H.ER 11:42
DX: R10.13 Epigastric pain (principal); E03.9 Hypothyroidism, unspecified; E05.90 Thyrotoxicosis, unspecified without thyrotoxic crisis or storm; G89.29 Other chronic pain; Z86.59 Personal history of other mental and behavioral disorders; N18.9 Chronic kidney disease, unspecified; M81.0 Age-related osteoporosis without current pathological fracture; Z86.73 Personal history of transient ischemic attack (TIA), and cerebral infarction without residual deficits; Z87.442 Personal history of urinary calculi
CPT/HCPCS: 71010; 74176; 80053; 82150; 83690; 84484; 85025; 93005; 96361; 96374; 96375; 99285; J1170; J2765; J7040

== ENCOUNTER 2017-03-23 18:25 | Emergency (ER) | payer MEDICAID ==
[2017-03-23 18:25] VITALS: BMI 18.9
[2017-03-23 18:30] VITALS: RESP 16
--- NOTE | 2017-03-23 19:48 | ED PDOC ---
HPI: SOB/CHF/COPD Chief Complaint (Nursing): Shortness Of Breath Chief Complaint (Provider): Anxiety Attack Additional History Per: Patient Additional Complaint(s): This is 51 y/o female with extensive PMH comes to the ED for 1 hour history of chest tightness/discomfort, heart palpitations, difficulty breathing, hyperventilation, nausea, upset stomach, choking feeling, mild dizziness, hot flashes and b/l lower and upper extremities tingling, numbness and shaking. Patient and admits she was in her usual state of her health 1 hour ago. Patient was on xanax which was d/c by PMD and hasn't taken it for a while. Patient admits this kind of episodes before but this seems more severe than before. denies any neurological changes. Past Medical History Vital Signs: Last Vital Signs Temp 97.6 F 03/23/17 18:29 Pulse 97 H 03/23/17 18:29 Resp 16 03/23/17 18:29 BP 125/89 03/23/17 18:29 Pulse Ox 100 03/23/17 20:37 - Medical History PMH: Anemia, Anxiety, Arthritis, Asthma, Back Problems (herniated disk), Bronchitis, COPD, Depression, Fibromyalgia, Gastritis, GERD, Hiatal Hernia, Hypercholesterolemia, Hyperlipidemia, Hyperthyroidism, Hypothyroidism, Migraine , Osteoporosis, Pneumonia, Rheumatoid Arthritis, Chronic Pain Denies: Alzheimer's Disease, Atrial Fibrillation, Cardia Arrhythmia, CHF, Dementia, HIV, HTN (denies), Kidney Stones, Mitral Valve Prolapse, Peripheral Edema, Chronic Kidney Disease, Seizures, TIA - Surgical History Surgical History: Appendectomy, Denies: Endoscopy, Pacemaker - Family History Family History: States: Unknown Family Hx, Hypertension - Living Arrangements Living Arrangements: With Family - Social History Current smoker - smoking cessation education provided: No Ex-Smoker (has not smoked in the last 12 months): No Alcohol: None Drugs: Denies - Immunization History Hx Tetanus Toxoid Vaccination: No Hx Influenza Vaccination: No Hx Pneumococcal Vaccination: No - Home Medications Home Medications: Ambulatory Orders Medication Instructions Recorded Omeprazole [Prilosec] 40 mg PO DAILY 08/02/15 Hydroxychloroquine Sulfate 200 mg PO BID #60 tablet 04/27/16 [Plaquenil] Levothyroxine [Synthroid] 50 mcg PO DAILY #30 tab 04/27/16 Famotidine [Pepcid] 1 tab PO BID PRN #10 tab 06/05/16 Sucralfate [Carafate] 1 gm PO QID #280 ml 06/05/16 Gabapentin [Neurontin] 300 mg PO TID 09/03/16 Mecotrac 1 tab PO QWK 09/03/16 Dexlansoprazole [Dexilant] 1 cap PO DAILY #30 cap.dr.bp 01/16/17 Metoclopramide [Reglan] 10 mg PO Q8 PRN #30 tab 01/16/17 oxyCODONE/Acetaminophen [Percocet 1 ea PO QID PRN #15 tab 02/25/17 5/325 mg Tab] LORazepam [Ativan] 1 mg PO Q12 PRN #4 tab 03/23/17 - Allergies Allergies/Adverse Reactions: Allergies Allergy/AdvReac Type Severity Reaction Status Date / Time ondansetron Allergy RASH Verified 02/25/17 11:45 [From Zofran (as hydrochloride)] tramadol Allergy VOMITING Verified 02/25/17 11:45 Curb-65 Severity Score - CURB-65 Severity Score Confusion: No Bun >19mg/dl (>7mmol/L): No Respiratory Rate greater than/equal to 30: No Systolic BP <90 or Diastolic BP less than/equal 60mmHg: No Age >64: No Curb-65 Score: 0 Percentage 30-day mortality: 0.6% Wells Criteria for PE - Wells Criteria for Pulmonary Embolism Clinical Signs and Symptoms of DVT: No P.E is #1 Diagnosis, or Equally Likely: No Heart Rate >100: No Immobilization at least 3 days;Surgery previous 4 weeks: No Previous, objectively diagnosed PE or DVT: No Hemoptysis: No Malignancy w/treatment within 6 months, or palliative: No Total Score: 0 Review of Systems Constitutional: Positive for: Chills, Sweats, Weakness, Weight loss. Negative for: Fever Eyes: Negative for: Vision Change, Conjunctivae Inflammation ENT: Negative for: Ear Pain, Nose Pain Cardiovascular: Positive for: Other (as per HPI) Respiratory: Positive for: Other (As per HPI ). Negative for: Cough Gastrointestinal: Positive for: Nausea, Other (As per HPI). Negative for: Vomiting Genitourinary Female: Negative for: Dysuria Musculoskeletal: Negative for: Neck Pain Skin: Negative for: Rash Neurological: Positive for: Weakness, Numbness, Dizziness. Negative for: Change in Speech, Confusion, Altered Mental Status Psych: Positive for: Anxiety Physical Exam - Reviewed Nursing Documentation Reviewed: Yes Vital Signs Reviewed: Yes - Physical Exam Appears: Positive for: Uncomfortable Head Exam: Positive for: ATRAUMATIC, NORMAL INSPECTION Skin: Positive for: Normal Color, Diaphoresis Eye Exam: Positive for: Normal appearance ENT: Positive for: Normal ENT Inspection Neck: Positive for: Normal Cardiovascular/Chest: Positive for: Regular Rate, Rhythm, Chest Non Tender. Negative for: Edema, JVD Respiratory: Positive for: Normal Breath Sounds. Negative for: Crackles, Rales , Rhonchi, Wheezing, Respiratory Distress Gastrointestinal/Abdominal: Positive for: Normal Exam, Bowel Sounds, Soft. 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 Negative for: Motor/Sensory Deficits, Facial Droop - ECG O2 Sat by Pulse Oximetry: 100 - Progress ED Course And Treament: 51 y/o female with PMH of anxiety comes to the ED for evaluation of anxiety attack - Ativan 1mg PO - Serial re-evaluations Case discussed with Dr. Reynoso Patient was reexamined and seems calm and baseline to her activity. Re-evaluation Time: 20:30 (calm and w/o any symptoms) Condition: Improved Medical Decision Making Medical Decision Making: Anxiety Attack Disposition - Clinical Impression Clinical Impression: Anxiety - Patient ED Disposition Is Patient to be Admitted: No - Disposition Disposition: Routine/Home Disposition Time: 20:55 Condition: STABLE Prescriptions: LORazepam [Ativan] 1 mg PO Q12 PRN #4 tab PRN Reason: Anxiety Instructions: Anxiety (ED) Forms: [employer] (Iranian)
[2017-03-23 21:04] VITALS: BP 122/78; PULSE 86; TEMP 98.6; O2SAT 98
== END 2017-03-23 21:05 | disposition home or self-care (01) ==
LOC: H.ER 18:25
DX: F41.9 Anxiety disorder, unspecified (principal); E03.9 Hypothyroidism, unspecified; E05.90 Thyrotoxicosis, unspecified without thyrotoxic crisis or storm; E78.00 Pure hypercholesterolemia, unspecified; F32.9 Major depressive disorder, single episode, unspecified; Z86.73 Personal history of transient ischemic attack (TIA), and cerebral infarction without residual deficits; Z87.442 Personal history of urinary calculi

== ENCOUNTER 2017-04-06 11:45 | Emergency (ER) | payer MEDICAID ==
[2017-04-06 11:46] VITALS: BMI 18.9
[2017-04-06 11:57] VITALS: BP 126/87; PULSE 59; RESP 18; TEMP 98; O2SAT 96
--- NOTE | 2017-04-06 12:37 | ED PDOC ---
HPI: General Adult Time Seen by Provider: 04/06/17 12:08 Chief Complaint (Nursing): Trauma History Per: Patient Additional Complaint(s): Pt. states last night she attempted to reach for an object under her bed but then she accidentally rolled off injuring the L side of her face. Denies LOC, neck pain, other injury, anticoagulant use, chest pain, previous TBI. Past Medical History Reviewed: Historical Data, Nursing Documentation, Vital Signs Vital Signs: Last Vital Signs Temp 98 F 04/06/17 11:53 Pulse 59 L 04/06/17 11:53 Resp 18 04/06/17 11:53 BP 126/87 04/06/17 11:53 Pulse Ox 96 04/06/17 14:36 - Medical History PMH: Anemia, Anxiety, Arthritis, Asthma, Back Problems (herniated disk), Bronchitis, COPD, Depression, Fibromyalgia, Gastritis, GERD, Hiatal Hernia, Hypercholesterolemia, Hyperlipidemia, Hyperthyroidism, Hypothyroidism, Migraine , Osteoporosis, Pneumonia, Rheumatoid Arthritis, Chronic Pain Denies: Alzheimer's Disease, Atrial Fibrillation, Cardia Arrhythmia, CHF, Dementia, HIV, HTN (denies), Kidney Stones, Mitral Valve Prolapse, Peripheral Edema, Chronic Kidney Disease, Seizures, TIA - Surgical History Surgical History: Appendectomy, Denies: Endoscopy, Pacemaker - Family History Family History: States: Hypertension - Immunization History Hx Tetanus Toxoid Vaccination: No Hx Influenza Vaccination: No Hx Pneumococcal Vaccination: No - Home Medications Home Medications: Ambulatory Orders Medication Instructions Recorded Omeprazole [Prilosec] 40 mg PO DAILY 08/02/15 Hydroxychloroquine Sulfate 200 mg PO BID #60 tablet 04/27/16 [Plaquenil] Levothyroxine [Synthroid] 50 mcg PO DAILY #30 tab 04/27/16 Famotidine [Pepcid] 1 tab PO BID PRN #10 tab 06/05/16 Sucralfate [Carafate] 1 gm PO QID #280 ml 06/05/16 Gabapentin [Neurontin] 300 mg PO TID 09/03/16 Mecotrac 1 tab PO QWK 09/03/16 Dexlansoprazole [Dexilant] 1 cap PO DAILY #30 cap.bp 01/16/17 Metoclopramide [Reglan] 10 mg PO Q8 PRN #30 tab 01/16/17 oxyCODONE/Acetaminophen [Percocet 1 ea PO QID PRN #15 tab 02/25/17 5/325 mg Tab] LORazepam [Ativan] 1 mg PO Q12 PRN #4 tab 03/23/17 Cyclobenzaprine [Cyclobenzaprine 10 mg PO Q8 PRN #10 tab 04/06/17 HCl] - Allergies Allergies/Adverse Reactions: Allergies Allergy/AdvReac Type Severity Reaction Status Date / Time ondansetron Allergy RASH Verified 02/25/17 11:45 [From Zofran (as hydrochloride)] tramadol Allergy VOMITING Verified 02/25/17 11:45 Review of Systems ROS Statement: Except As Marked, All Systems Reviewed And Found Negative Neurological: Positive for: Headache Physical Exam - Physical Exam Appears: Positive for: Well, Non-toxic, No Acute Distress Head Exam: Negative for: ATRAUMATIC (ecchymosis and swelling to L zygomatic area and L side of forehead without break in skin integrity), NORMAL INSPECTION , NORMOCEPHALIC Skin: Positive for: Normal Color, Warm, DRY Eye Exam: Positive for: EOMI, Normal appearance, PERRL ENT: Positive for: Normal ENT Inspection, TM Is/Are (no hemotympanum b/l) Neck: Positive for: Normal, Painless ROM Cardiovascular/Chest: Positive for: Chest Non Tender Gastrointestinal/Abdominal: Positive for: Normal Exam, Soft. Negative for: Tenderness Back: Positive for: Normal Inspection. Negative for: Vertebral Tenderness (no cervical tenderness) Extremity: Positive for: Normal ROM Neurologic/Psych: Positive for: Alert, Oriented, Gait (steady, unassisted). Negative for: Aphasia, Facial Droop - ECG O2 Sat by Pulse Oximetry: 96 - Progress ED Course And Treament: CT head, maxillofacial w/o contrast ordered. 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 CT head, maxillofacial w/o contrast: nothing acute Disposition - Clinical Impression Clinical Impression: Head injury, Facial contusion - Patient ED Disposition Is Patient to be Admitted: No - Disposition Disposition: Routine/Home Disposition Time: 14:35 Condition: STABLE Prescriptions: Cyclobenzaprine [Cyclobenzaprine HCl] 10 mg PO Q8 PRN #10 tab PRN Reason: Muscle Spasm Instructions: Head Injury (ED), Cervical Sprain (ED), Facial Contusion (ED) Forms: [email or web address] ([place]ican) Print Language: YAKUT
--- NOTE | 2017-04-06 14:05 | CT ---
PROCEDURE: CT HEAD WITHOUT CONTRAST. HISTORY: trauma COMPARISON: Comparison made with concurrent CT scan of the maxillofacial skeleton. TECHNIQUE: Axial computed tomography images were obtained through the head/brain without intravenous contrast. Radiation dose: Total exam DLP = 829.14 mGy-cm. This CT exam was performed using one or more of the following dose reduction techniques: Automated exposure control, adjustment of the mA and/or kV according to patient size, and/or use of iterative reconstruction technique. FINDINGS: HEMORRHAGE: No intracranial hemorrhage. BRAIN: Suspect minimal chronic periventricular white matter ischemic changes. Mild age-appropriate volume loss. The the the the VENTRICLES: Unremarkable. No hydrocephalus. CALVARIUM: Unremarkable. PARANASAL SINUSES: Unremarkable as visualized. No significant inflammatory changes. MASTOID AIR CELLS: Unremarkable as visualized. No inflammatory changes. OTHER FINDINGS: None. IMPRESSION: Limited motion degraded study. No evidence of acute intracranial hemorrhage. . Suspect minimal chronic periventricular white matter ischemic changes. Normal CT of the Head.
--- NOTE | 2017-04-06 14:31 | CT ---
PROCEDURE: CT scan maxillofacial skeleton 04/06/2017 HISTORY: Trauma COMPARISON: Comparison made with concurrent CT scan brain TECHNIQUE: Contiguous helical/transaxial CT images of the maxillofacial bones were obtained. Coronal and sagittal reformats were generated. Radiation dose: Total exam DLP = 794.09 mGy-cm. This CT exam was performed using one or more of the following dose reduction techniques: Automated exposure control, adjustment of the mA and/or kV according to patient size, and/or use of iterative reconstruction technique. FINDINGS: NASAL BONES: Unremarkable. ORBITS: Unremarkable. PARANASAL SINUSES/ MASTOIDS: The frontal sinuses are slightly underpneumatized/ hypoplastic. Remaining visualized paranasal sinuses well-developed and currently well-aerated. MAXILLA: Unremarkable. MANDIBLE/ TEMPOROMANDIBULAR JOINTS: Unremarkable. SKULL BASE: Unremarkable. TEMPORAL BONES: Middle ears and mastoid grossly unremarkable. . Note made of tiny calcifications adjacent to both TM joints. OTHER FINDINGS: Note made of a chronic appearing defect within the anterior inferior margin of the cartilaginous portion of the nasal septum. . Clinical correlation recommended. Nasal mucosal hypertrophy. . IMPRESSION: No evidence of acute maxillofacial skeletal fractures. There is a chronic appearing in defect along the anterior inferior margin of the cartilaginous portion nasal septum. Rule out the sequela of trauma, inflammatory, iatrogenic or cocaine use. Clinical correlation with physical exam recommended.
== END 2017-04-06 15:28 | disposition home or self-care (01) ==
LOC: H.ER 11:45
DX: S09.90XA Unspecified injury of head, initial encounter (principal); S00.83XA Contusion of other part of head, initial encounter; W06.XXXA Fall from bed, initial encounter; Y92.003 Bedroom of unspecified non-institutional (private) residence as the place of occurrence of the external cause; E03.9 Hypothyroidism, unspecified; E78.00 Pure hypercholesterolemia, unspecified; I34.1 Nonrheumatic mitral (valve) prolapse; M79.7 Fibromyalgia; Z86.73 Personal history of transient ischemic attack (TIA), and cerebral infarction without residual deficits

== ENCOUNTER → 2018-01-20 | Emergency (ER) | payer MEDICAID ==
[~2018-01-20] MED LIST: Albuterol-Ipratrop 3 mg / 0.5 (3 ml) UD INH STA; Albuterol-Ipratrop 3 mg / 0.5 (3 ml) UD ONE; MethylPREDNISolone 40 mg Vial IVP ONE; MethylPREDNISolone 40 mg Vial ONE; methylPREDNISolone 60 MG in Sodium Chloride 0.9% 50 ML IVPB ONE
[2018-01-20 12:50] VITALS: BMI 18.9
[2018-01-20 13:16] VITALS: BP 129/68; PULSE 64; RESP 24; TEMP 99.6; O2SAT 98
--- NOTE | 2018-01-20 13:57 | ED PDOC ---
HPI: Influenza Chief Complaint: Cough, Cold, Congestion Past Medical History Vital Signs: Last Vital Signs Temp 37.6 C 01/20/18 13:11 Pulse 64 01/20/18 13:11 Resp 24 01/20/18 13:11 BP 129/68 01/20/18 13:11 Pulse Ox 98 01/20/18 13:11 - Medical History PMH: Anemia, Anxiety, Arthritis, Asthma, Back Problems (herniated disk), Bronchitis, COPD, Depression, Fibromyalgia, Gastritis, GERD, Hiatal Hernia, Hypercholesterolemia, Hyperlipidemia, Hyperthyroidism, Hypothyroidism, Migraine, Osteoporosis, Pneumonia, Rheumatoid Arthritis, Chronic Pain Denies: Alzheimer's Disease, Atrial Fibrillation, Cardia Arrhythmia, CHF, Dementia, HIV, HTN (denies), Kidney Stones, Mitral Valve Prolapse, Peripheral Edema, Chronic Kidney Disease, Seizures, TIA - Surgical History Surgical History: Appendectomy, Denies: Endoscopy, Pacemaker - Family History Family History: States: Hypertension - Immunization History Hx Tetanus Toxoid Vaccination: No Hx Influenza Vaccination: No Hx Pneumococcal Vaccination: No - Home Medications Home Medications: Ambulatory Orders Medication Instructions Recorded Omeprazole [Prilosec] 40 mg PO DAILY 08/02/15 Hydroxychloroquine Sulfate 200 mg PO BID #60 tablet 04/27/16 [Plaquenil] Levothyroxine [Synthroid] 50 mcg PO DAILY #30 tab 04/27/16 Famotidine [Pepcid] 1 tab PO BID PRN #10 tab 06/05/16 Sucralfate [Carafate] 1 gm PO QID #280 ml 06/05/16 Gabapentin [Neurontin] 300 mg PO TID 09/03/16 Mecotrac 1 tab PO QWK 09/03/16 Dexlansoprazole [Dexilant] 1 cap PO DAILY #30 bp 01/16/17 Metoclopramide [Reglan] 10 mg PO Q8 PRN #30 tab 01/16/17 oxyCODONE/Acetaminophen [Percocet 1 ea PO QID PRN #15 tab 02/25/17 5/325 mg Tab] LORazepam [Ativan] 1 mg PO Q12 PRN #4 tab 03/23/17 Cyclobenzaprine [Cyclobenzaprine 10 mg PO Q8 PRN #10 tab 04/06/17 HCl] - Allergies Allergies/Adverse Reactions: Allergies Allergy/AdvReac Type Severity Reaction Status Date / Time ondansetron Allergy RASH Verified 01/20/18 13:11 [From Zofran (as hydrochloride)] tramadol Allergy VOMITING Verified 01/20/18 13:11 Physical Exam - Reviewed Vital Signs Reviewed: Yes - Physical Exam Appears: Positive for: Well, In Acute Distress (due to unrelenting coughing) Head Exam: Positive for: ATRAUMATIC Skin: Positive for: Warm Eye Exam: Positive for: Normal appearance, EOMI ENT: Positive for: Pharynx Is (clear), TM Is/Are (clear) Neck: Positive for: Supple Cardiovascular/Chest: Positive for: Regular Rate, Rhythm Respiratory: Positive for: Crackles, Rhonchi, Wheezing Gastrointestinal/Abdominal: Positive for: Bowel Sounds, Soft. Negative for: Tenderness Extremity: Positive for: Normal ROM, Capillary Refill (<3s). Negative for: Tenderness, Pedal Edema, Calf Tenderness, Swelling Lymphatic: Negative for: Adenopathy Neurologic/Psych: Positive for: Alert, Oriented Medical Decision Making Medical Decision Making: Suspect COPD exacerbation w/wo pneumonia and that chest pain is related to coughing. - CXR, EKG - CBC, CMP, Troponin - David Solu-Medrol - - ECG O2 Sat by Pulse Oximetry: 98 Disposition - Disposition
--- NOTE | 2018-01-20 14:02 | ED PDOC ---
HPI: Chest Pain Time Seen by Provider: 01/20/18 14:01 Chief Complaint (Nursing): Cough, Cold, Congestion History Per: Patient, Family Additional Complaint(s): Pt seen adn examined at bedside with attending. 52F multiple co-morbidities to include pulmonary fibrosis, scleroderma p/w 1.5 weeks of coughing and associated chest wall pain. She reports she was recently treated at [facility] for "an infection", as per patient the agile java developer stated "lungs were clear" and patient was "tired of waiting and so left the hospital without discharge instructions or prescriptions". Today she presents with productive sounding cough after visiting PMD (Dr Joshua Espino) and being prescribed Levoquin/Medrol pack). She denies any associated fevers, chills, dizziness, but reports mild SOB when she has a "coughing spell" and denies using home oxygen. She denies any N/V/diarrhea/dysuria. Past Medical History Vital Signs: Last Vital Signs Temp 37.6 C 01/20/18 13:11 Pulse 64 01/20/18 13:11 Resp 24 01/20/18 13:11 BP 129/68 01/20/18 13:11 Pulse Ox 98 01/20/18 13:11 - Medical History PMH: Anemia, Anxiety, Arthritis, Asthma, Back Problems (herniated disk), Bronchitis, COPD, Depression, Fibromyalgia, Gastritis, GERD, Hiatal Hernia, Hypercholesterolemia, Hyperlipidemia, Hyperthyroidism, Hypothyroidism, Migraine, Osteoporosis, Pneumonia, Rheumatoid Arthritis, Chronic Pain Denies: Alzheimer's Disease, Atrial Fibrillation, Cardia Arrhythmia, CHF, Dementia, HIV, HTN (denies), Kidney Stones, Mitral Valve Prolapse, Peripheral Edema, Chronic Kidney Disease, Seizures, TIA - Surgical History Surgical History: Appendectomy, Denies: Endoscopy, Pacemaker - Family History Family History: States: Hypertension - Immunization History Hx Tetanus Toxoid Vaccination: No Hx Pneumococcal Vaccination: No - Home Medications Home Medications: Ambulatory Orders Medication Instructions Recorded Gabapentin [Neurontin] 300 mg PO TID 09/03/16 Acetaminophen/Butalbital/Caf 1 tab PO Q4 PRN 01/20/18 [Fioricet] Albuterol Sulfate [Ventolin Hfa] 2 puff IH Q4 PRN 01/20/18 Levothyroxine [Synthroid] 50 mcg PO DAILY 01/20/18 Methotrexate 20 mg PO TU 01/20/18 Montelukast [Singulair] 10 mg PO HS 01/20/18 NIFEdipine ER [Procardia XL] 30 mg PO DAILY 01/20/18 Omeprazole 40 mg PO DAILY 01/20/18 Ondansetron [Zofran Odt] 4 mg PO Q8 PRN 01/20/18 Sucralfate [Carafate Oral Susp] 10 ml PO QID 01/20/18 Zolpidem [Ambien] 10 mg PO HS 01/20/18 - Allergies Allergies/Adverse Reactions: Allergies Allergy/AdvReac Type Severity Reaction Status Date / Time ondansetron Allergy RASH Verified 01/20/18 13:11 [From Zofran (as hydrochloride)] tramadol Allergy VOMITING Verified 01/20/18 13:11 Wells Criteria for PE - Wells Criteria for Pulmonary Embolism Clinical Signs and Symptoms of DVT: No P.E is #1 Diagnosis, or Equally Likely: No Heart Rate >100: No Immobilization at least 3 days;Surgery previous 4 weeks: No Previous, objectively diagnosed PE or DVT: No Hemoptysis: No Malignancy w/treatment within 6 months, or palliative: No Total Score: 0 Review of Systems ROS Statement: Except As Marked, All Systems Reviewed And Found Negative Cardiovascular: Positive for: Chest Pain Respiratory: Positive for: Cough, Shortness of Breath, Pleuritic Pain Gastrointestinal: Negative for: Nausea, Vomiting, Diarrhea Genitourinary Female: Negative for: Dysuria Musculoskeletal: Positive for: Other (chronic musculoskeletal pain, entire body) Physical Exam - Reviewed Vital Signs Reviewed: Yes - Physical Exam Appears: Positive for: Non-toxic, In Acute Distress (secondary to coughing) Head Exam: Positive for: ATRAUMATIC Skin: Positive for: Warm, Dry Eye Exam: Positive for: Normal appearance ENT: Positive for: Pharynx Is (clear), TM Is/Are (clear) Neck: Positive for: Supple Cardiovascular/Chest: Positive for: Regular Rate, Rhythm Respiratory: Positive for: Crackles, Rhonchi, Wheezing. Negative for: Normal Breath Sounds Gastrointestinal/Abdominal: Positive for: Normal Exam, Bowel Sounds, Soft. Negative for: Tenderness Extremity: Positive for: Normal ROM, Capillary Refill (<3s). Negative for: Tenderness, Pedal Edema, Calf Tenderness, Swelling Neurologic/Psych: Positive for: Alert, Oriented - ECG O2 Sat by Pulse Oximetry: 98 Medical Decision Making Medical Decision Making: Suspect COPD exacerbation w/wo pneumonia and that chest pain is related to coughing. - CXR, EKG - CBC, CMP, Troponin - David Solu-Medrol PATIENT LEFT WITHOUT ANY MEDICATION OR LAB WORK BEING COMPLETED. Disposition - Clinical Impression Clinical Impression: COPD exacerbation - Patient ED Disposition Is Patient to be Admitted: No - Disposition Disposition: Left W/O Treatment Disposition Time: 14:23 Condition: STABLE Forms: [employer] (Omani)
--- NOTE | 2018-01-21 06:54 | CARD ---
APPROVED REPORT Date of service: 01/20/2018 EKG Measurement Heart [id number] <Conclusion> Sinus tachycardia Possible Left atrial enlargement Borderline ECG
== END | disposition home or self-care (01) ==
LOC: H.ER 12:50
DX: J44.1 Chronic obstructive pulmonary disease with (acute) exacerbation (principal); J84.10 Pulmonary fibrosis, unspecified; E05.90 Thyrotoxicosis, unspecified without thyrotoxic crisis or storm; G89.29 Other chronic pain; Z86.59 Personal history of other mental and behavioral disorders; I34.1 Nonrheumatic mitral (valve) prolapse; M79.7 Fibromyalgia; M81.0 Age-related osteoporosis without current pathological fracture; M06.9 Rheumatoid arthritis, unspecified; Z86.73 Personal history of transient ischemic attack (TIA), and cerebral infarction without residual deficits

== ENCOUNTER 2018-08-02 08:13 | Emergency (ER) | payer MEDICAID ==
[2018-08-02 08:21] VITALS: BMI 21.1
[2018-08-02 08:22] VITALS: O2SAT 100
--- NOTE | 2018-08-02 09:23 | ED PDOC ---
Lower Extremity Pain/Injury Time Seen by Provider: 08/02/18 09:00 Chief Complaint (Nursing): Lower Extremity Problem/Injury Chief Complaint (Provider): left foot pain History Per: Patient History/Exam Limitations: no limitations Current Symptoms Are (Timing): Still Present Severity: Moderate Pain Scale Rating Of: 6 Additional History Per: Patient Additional Complaint(s): 53 year old female with history of lupus, osteoporosis, CHF and arthitis, presents to the ED with complaints of left foot pain since lastnight after a ceramic "raine mouse" fell on left foot. Patient states since then having difficulty walking due pain. Patient reports the ceramic statue broke and the heaviest part of the objects strike her toes. Patient applied heating pad and dressing on her own at home. Patient states pain worse with ambulation and when attempting to move toes. - Ankle/Foot Description Of Injury: Struck With Object Past Medical History Vital Signs: Last Vital Signs Temp 98.3 F 08/02/18 08:21 Pulse 110 H 08/02/18 09:04 Resp 16 08/02/18 08:21 BP 108/65 08/02/18 09:04 Pulse Ox 100 08/02/18 08:21 Primary Care Provider: FAMILY PROVIDER,NO - Medical History PMH: Anemia, Anxiety, Arthritis, Asthma, Back Problems (herniated disk), Bronchitis, COPD, Depression, Fibromyalgia, Gastritis, GERD, Hiatal Hernia, Hypercholesterolemia, Hyperlipidemia, Hyperthyroidism, Hypothyroidism, Migraine, Osteoporosis, Pneumonia, Rheumatoid Arthritis, Chronic Pain Denies: Alzheimer's Disease, Atrial Fibrillation, Cardia Arrhythmia, CHF, Dementia, HIV, HTN (denies), Kidney Stones, Mitral Valve Prolapse, Peripheral Edema, Chronic Kidney Disease, Seizures, TIA - Surgical History Surgical History: Appendectomy, Denies: Endoscopy, Pacemaker - Family History Family History: States: Hypertension - Living Arrangements Living Arrangements: With Family - Social History Alcohol: None Drugs: Denies - Immunization History Hx Tetanus Toxoid Vaccination: No Hx Pneumococcal Vaccination: No - Home Medications Home Medications: Ambulatory Orders Medication Instructions Recorded Gabapentin [Neurontin] 300 mg PO TID 09/03/16 Acetaminophen/Butalbital/Caf 1 tab PO Q4 PRN 01/20/18 [Fioricet] Albuterol Sulfate [Ventolin Hfa] 2 puff IH Q4 PRN 01/20/18 Levothyroxine [Synthroid] 50 mcg PO DAILY 01/20/18 Methotrexate 20 mg PO TU 01/20/18 Montelukast [Singulair] 10 mg PO HS 01/20/18 NIFEdipine ER [Procardia XL] 30 mg PO DAILY 01/20/18 Omeprazole 40 mg PO DAILY 01/20/18 Ondansetron [Zofran Odt] 4 mg PO Q8 PRN 01/20/18 Sucralfate [Carafate Oral Susp] 10 ml PO QID 01/20/18 Zolpidem [Ambien] 10 mg PO HS 01/20/18 Ibuprofen [Motrin] 400 mg PO Q8H PRN #30 tab 08/02/18 - Allergies Allergies/Adverse Reactions: Allergies Allergy/AdvReac Type Severity Reaction Status Date / Time ondansetron Allergy RASH Verified 01/20/18 13:11 [From Zofran (as hydrochloride)] tramadol Allergy VOMITING Verified 01/20/18 13:11 Review of Systems ROS Statement: Except As Marked, All Systems Reviewed And Found Negative Musculoskeletal: Positive for: Foot Pain (left foot pain) Physical Exam - Reviewed Nursing Documentation Reviewed: Yes Vital Signs Reviewed: Yes - Physical Exam Appears: Positive for: Well, Non-toxic, No Acute Distress Head Exam: Positive for: ATRAUMATIC, NORMAL INSPECTION, NORMOCEPHALIC Skin: Positive for: Normal Color, Warm, DRY Eye Exam: Positive for: Normal appearance, PERRL ENT: Positive for: Normal ENT Inspection Neck: Positive for: Normal, Painless ROM Cardiovascular/Chest: Positive for: Regular Rate, Rhythm Respiratory: Positive for: CNT, Normal Breath Sounds Gastrointestinal/Abdominal: Positive for: Normal Exam, Soft Back: Positive for: Normal Inspection Extremity: Positive for: Tenderness (entire foot. neg for brusing or swelling to the foot. ), Capillary Refill (<2sec cap refill left foot ). Negative for: Deformity, Swelling Neurological/Psych: Positive for: Awake, Alert, Normal Tone - ECG O2 Sat by Pulse Oximetry: 100 Medical Decision Making Medical Decision Making: Patient offered to be given ibuprofen for foot pain. Patient Refusing stating she can not swallow pills. Patient offered to be given suspension continues to refuse. Patient states she usually comes to ED and iv is inserted and shes given Dilaudid. Patient advised we are a opioid free hospital. Opioids are not indicated for injury reported in this visit. Patient lives in chronic pain due to co-morbidities and states pain management "wants to put a needle in my back and i will not let them ". repeat vitals: hr: 110 b/p: 108/65 11:11 Patient state she will take Toradol IM now. One dose to be given in ED. Xray results reviewed with patient. no acute fx. Jerome wrap to left foot. patient requesting surgical shoe has she is wearing slippers and she applying weight to toes and requesting crutches. Impression:Foot contusion rx: motrin 400mg. Referral to podiatry if pain persists given. Patient states understanding and agrees with plan. Disposition - Clinical Impression Clinical Impression: Contusion of foot including toes - Patient ED Disposition Is Patient to be Admitted: No Counseled Patient/Family Regarding: Diagnosis, Need For Followup, Rx Given - Disposition Referrals: Podiatry Clinic [Outside] Disposition: Routine/Home Disposition Time: 11:11 Condition: GOOD Prescriptions: Ibuprofen [Motrin] 400 mg PO Q8H PRN #30 tab PRN Reason: Pain, Moderate (4-7) Instructions: Contusion (DC), Toe Injury Forms: [facility] (Kiswahili) Print Language: CROATIAN - POA Present On Arrival: None
[2018-08-02 11:58] VITALS: BP 106/56; PULSE 72; RESP 15; TEMP 97.9
--- NOTE | 2018-08-02 17:08 | RAD ---
Date of service: 08/02/2018 PROCEDURE: Left Foot Radiographs. HISTORY: heavy object feel on foot COMPARISON: None. TECHNIQUE: 3 views obtained. FINDINGS: BONES: There is a [id number] hallux valgus deformity appreciated with accompanying advanced degenerative joint disease at the 1st metatarsophalangeal joint. Diffuse osteopenia suggests osteoporosis. A small bone infarct or enchondroma is appreciate the distal tibial diaphysis. JOINTS: Moderate to severe multifocal degenerative joint disease seen throughout the midfoot and hindfoot joints, particularly at the calcaneal navicular joint with there is minimal residual joint space and prominent cortical sclerosis evident. Lesser similar degenerative changes seen at the interphalangeal joints diffusely. SOFT TISSUES: Normal. OTHER FINDINGS: None. IMPRESSION: No acute fracture or dislocation left foot with degenerative changes advanced at the mid and hindfoot joints as well as the 1st metatarsophalangeal joint. Moderate hallux valgus deformity. Diffuse osteopenia suggests osteoporosis. Small enchondroma or bone infarct distal diaphysis left tibia.
== END 2018-08-02 11:25 | disposition home or self-care (01) ==
LOC: H.ER 08:13
DX: S90.32XA Contusion of left foot, initial encounter (principal); W20.8XXA Other cause of strike by thrown, projected or falling object, initial encounter; E78.00 Pure hypercholesterolemia, unspecified; E03.9 Hypothyroidism, unspecified; E05.90 Thyrotoxicosis, unspecified without thyrotoxic crisis or storm; J44.9 Chronic obstructive pulmonary disease, unspecified; M06.9 Rheumatoid arthritis, unspecified; M79.7 Fibromyalgia; M81.0 Age-related osteoporosis without current pathological fracture; Z86.73 Personal history of transient ischemic attack (TIA), and cerebral infarction without residual deficits
CPT/HCPCS: 73630; 96372; 99283; J1885